=== PATIENT | female | born 1970 | race Caucasian/White ===

== ENCOUNTER 2022-02-16 10:19 | Emergency (ER) | payer OTHER ==
[2022-02-16 11:05] VITALS: TEMP 98.4
--- NOTE | 2022-02-16 12:07 | XR ---
EXAMINATION TYPE: XR chest 2V DATE OF EXAM: 02/16/2022 11:40 AM COMPARISON: None TECHNIQUE: XR chest 2V Frontal and lateral views of the chest. CLINICAL INDICATION:Female, 51 years old with history of cough and chest pain; FINDINGS: Lungs/Pleura: There is no evidence of pleural effusion, focal consolidation, or pneumothorax. Pulmonary vascularity: Unremarkable. Heart/mediastinum: Cardiomediastinal silhouette is unremarkable. Musculoskeletal: No acute osseous pathology. IMPRESSION: No acute cardiopulmonary disease/process.
[2022-02-16 12:25] VITALS: BP 140/79; PULSE 97; RESP 20
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
[2022-02-16] MEDS ORDERED: FLUTICASONE 50MCG/SPRAY NASAL 16GM EA NOSTRIL STA (12:30)
== END 2022-02-16 12:44 | disposition home or self-care (01) ==
LOC: EC 10:19
DX: J10.1 Influenza due to other identified influenza virus with other respiratory manifestations (principal); I10 Essential (primary) hypertension; E11.9 Type 2 diabetes mellitus without complications; F32.A Depression, unspecified; Z20.822 Contact with and (suspected) exposure to COVID-19; Z88.3 Allergy status to other anti-infective agents
CPT/HCPCS: 71046; 87502; 87635; 99283

== ENCOUNTER 2023-10-14 23:36 | Emergency (ER) | payer OTHER ==
[2023-10-14] MEDS ORDERED: KETOROLAC 15 MG/ML 1 ML VIAL ONE (23:50)
[2023-10-15] MEDS ORDERED: CIPROFLOXACIN HCL 500 MG TAB ONE (01:42)
== END 2023-10-15 01:30 | disposition home or self-care (01) ==
LOC: EC 23:36
DX: J18.9 Pneumonia, unspecified organism (principal)
CPT/HCPCS: 99283 ×2; 96374 ×2; J1885

== ENCOUNTER → 2023-11-18 | Outpatient (CLI) | payer OTHER ==
--- NOTE | 2023-11-21 21:43 | US ---
EXAMINATION TYPE: US abdomen complete DATE OF EXAM: 11/18/2023 COMPARISON: NONE CLINICAL INDICATION: Female, 53 years old with history of R14.0 ABDOMINAL DISTENSION (GASEOUS); Bloat ing, LUQ pain, nausea TECHNIQUE: Multiple sonographic images of the abdomen are obtained. FINDINGS: EXAM MEASUREMENTS: Liver Length: 18.4 cm . Normal less than 50.5 cm. Gallbladder Wall: 0.3 cm CBD: 0.7 cm Spleen: 13.5 cm Right Kidney: 13.2 x 5.3 x 4.1 cm Left Kidney: 13.5 x 5.4 x 4.6 cm DOCUMENT MANAGEMENT CONSULTANT NOTES: Limitations due to patient's body habitus and overlying bowel gas Pancreas: Tail obscured by overlying bowel gas Liver: enlarged, attenuating Gallbladder: no evidence of stones Evidence for sonographic Tapia's sign: no CBD: upper limits of normal Spleen: upper limits of normal Right Kidney: no evidence of hydronephrosis Left Kidney: hypoechoic lesion lower pole = 2.9 x 2.9 x 2.8cm Upper IVC: wnl Abd Aorta: visualized portions appear wnl IMPRESSION: 1. Hepatomegaly 2. Limitations of the exam due to bowel gas [facility], , 11/21/2023 9:40 PM
== END | disposition home or self-care (01) ==
LOC: RADUSWWP 08:40
PROVIDERS: ATTEND Family Medicine
DX: R14.0 Abdominal distension (gaseous)
CPT/HCPCS: 76700

== ENCOUNTER → 2024-06-12 | Outpatient (CLI) | payer OTHER ==
[2024-06-12 14:10] LABS: Basophils # (A) 0.08 X 10*3/uL (0.00-0.10); Basophils % (A) 0.9 %; Eosinophils # (A) 0.31 X 10*3/uL (0.04-0.35); Eosinophils % (A) 3.5 %; HCT 41.3 % (37.2-46.3); HGB 13.5 g/dL (12.0-15.0); Lymphocytes # (A) 2.71 X 10*3/uL (0.90-5.00); MCH 28.8 pg (27.0-32.0); MCHC 32.7 g/dL (32.0-37.0); MCV 88.2 FL (80.0-97.0); Mean Platelet Volume 12.2 FL (9.5-12.2); Monocytes # (A) 0.77 X 10*3/uL (0.20-1.00); Monocytes % (A) 8.8 %; NRBC Per 100 WBC 0 X 10*3/uL (0.00-0.01); Platelet Count 253 X 10*3/uL (140-440); RBC 4.68 X 10*6/uL (4.10-5.20); RDW 12.4 % (11.5-14.5); WBC 8.74 X 10*3/uL (4.50-10.00)
[2024-06-12 14:11] LABS: ALT 20 U/L (8-44); AST 14 U/L (13-35); Albumin 4.2 g/dL (3.8-4.9); Alkaline Phosphatase 92 U/L (41-126); Blood Urea Nitrogen 16.8 mg/dL (9.0-27.0); Calcium 9.5 mg/dL (8.7-10.3); Carbon Dioxide 23.3 mmol/L (21.6-31.8); Chloride 99 mmol/L (96-109); Chol/HDL Ratio 3.88 Ratio; Glucose 226 mg/dL (70-110); LDL Cholesterol,Calculated 115.1 mg/dL (0.0-131.0); Potassium 4.9 mmol/L (3.5-5.5); Sodium 136 mmol/L (135-145); Total Bilirubin 0.2 mg/dL (0.3-1.2); Total Protein 7.2 g/dL (6.2-8.2)
== END | disposition home or self-care (01) ==
LOC: LABWHC1 08:28
PROVIDERS: ATTEND Family Medicine
DX: E11.65 Type 2 diabetes mellitus with hyperglycemia (principal); E55.9 Vitamin D deficiency, unspecified; E78.1 Pure hyperglyceridemia
CPT/HCPCS: 36415; 80053; 80061; 82043; 82306; 82570; 85025

== ENCOUNTER 2024-06-20 00:40 | Emergency (ER) | payer OTHER ==
[2024-06-20 00:46] VITALS: RESP 16; TEMP 98.2
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
[2024-06-20] MEDS: ERYTHROMYCIN 5 MG/GM OPHTH OINT 1 GM TUBE LEFT EYE STA (01:20)
[2024-06-20 01:41] VITALS: BP 144/87; PULSE 100
== END 2024-06-20 01:41 | disposition home or self-care (01) ==
LOC: EC 00:40
DX: S05.02XA Injury of conjunctiva and corneal abrasion without foreign body, left eye, initial encounter (principal); H40.052 Ocular hypertension, left eye; Z88.8 Allergy status to other drugs, medicaments and biological substances; X58.XXXA Exposure to other specified factors, initial encounter
CPT/HCPCS: 99283